=== PATIENT | male | born 1965 | race Caucasian/White ===

== ENCOUNTER 2021-08-21 08:35 | Day surgery (SDC) | payer OTHER ==
--- NOTE | 2021-08-08 15:35 | NUR ---
DOS: 08/21/21 STAIRS: 4 STEPS INTO THE HOME WALKER: HAS A FWW AND WILL BRING IT ON THE DAY OF SURGERY SHOWER: STEP OVER AND WILL NEED TO GET A CHAIR OR [facility]ENCH PROVIDED [employer] CLOSET HANDOUT TOILETS: SHORT AND WILL NEED TO GET A RISER APPOINTMENTS AND PHYSICAL THERAPY: HIS WILL BE HOME WITH HIM ND GET HIM TO WHERE HE NEEDS TO GO.
[~2021-08-21] VITALS: Ht 162.6 cm; Wt 64.5 kg
--- NOTE | ~2021-08-21 | OR ---
[facility] [address] [place], [place] [address] Draft DATE OF OPERATION: 08/21/2021 SURGEON: Candida Salas MD PREOPERATIVE DIAGNOSIS: Severe erosive degenerative joint disease, right knee. POSTOPERATIVE DIAGNOSIS: Severe erosive degenerative joint disease, right knee. PROCEDURE PERFORMED: Right total knee arthroplasty with Grabiel with increased difficulty. POST COMMANDER: XAVIER Rodriguez. Stefania was critical and present for all portions of procedure. ANESTHESIA: Spinal. BLOOD LOSS: 250 mL. TOURNIQUET TIME: Zero. IMPLANTS: Triathlon size 5 femur, 4 universal base plate with a 5 mm Augment medially, 50 mm tibial stem, 13 mm polyethylene, and 35 mm patella. BRIEF HISTORY: Adrienne is a 56-year-old gentleman with severe erosive osteoarthritis of his right knee. He had about 40 degrees of varus and marked erosion both of the femur, but mostly on the tibial side. Risks and benefits of difficult primary total knee were discussed with him. He elected to proceed. Once consent was obtained, he was taken to the operating room after adequate anesthesia. He was placed on operating table. All downside pressure points well padded. The leg was prepped and draped in a standard sterile fashion. The knee was approached through standard longitudinal incision. A mid vastus arthrotomy was performed. The MCL was elevated with a sleeve around the posteromedial corner. There were large osteophytes in the way both from the tibial and femoral side PATIENT NAME: ADRIENNE JAMA OPERATIVE REPORT DATE OF : 61 REPORT #: [id number] PHYSICIAN: CANDIDA SALAS MD PCP: SERA PADILLA MD REPORT IS CONFIDENTIAL AND NOT TO BE RELEASED WITHOUT AUTHORIZATION [facility] [address] [place], [place] [address] Draft and these were removed as we went. The patella was subluxed, however, it was quite large and with difficulty subluxing it. A small quadriceps snip was performed. The patella was then cut to allow mobilization laterally. Once this was accomplished, we were able to put the computer ray and the check point in medial femoral condyle. The proximal tibia also had a checkpoint placed and the tibial Grabiel ray was then placed percutaneously. We registered the fine anatomic points of the knee; however, we were unable to really assess ligamentous balance secondary to the extensive destruction medially. We then set the components in a little bit more varus to bring the gaps as close as we could. Once this was completed, then the robot was brought in and the straight cuts were made with care taken to protect the MCL and patellar tendon. Two ankle cuts were made as well. Once this was accomplished, all bony remnants were removed and the defect in the medial tibia was inspected. We then placed a universal base plate on there and pinned a cutting guide anteriorly. We then made the cut for 5 mm augment, which was sufficient to get down to good base bone. The trial was then positioned initially with an 11 mm polyethylene along with the femoral trial; however, this was quite loose, we went up to a 13, which showed good ligamentous balance both in extension and flexion and mid flexion. We then sized and drilled the patella for 35. The distal femoral drill holes were made and the keel punch was finished on the tibia along with drilling for the stem. Once this was accomplished, bone was pulse lavaged and packed with dry Ray-Anne Marie. The implants were prepared. I placed the 50 mm stem on the tibial base plate along with the 5 mm augment medially. The cement was mixed, when reached proper consistency, it was placed on the tibial and patellar components as well as a corresponding bone. The tibia was impacted into position until it was seated flush and all excess cement was removed. The 13 poly was snapped into position and the femur was impacted in place. The knee was extended and nicely loaded. The patella was clamped until the cement hardened. Any excess overflow was removed from both the tibia and the patella. The patellar tracking was noted to be good with no tilt. The knee was stable through 140 degrees of range of motion. He did get to full extension. The knee was pulse lavaged at intervals throughout the procedure. A total of 3 L normal saline was used. We did an Irrisept soak in the midportion. The On-Q pain pump was percutaneously placed into the adductor canal from the suprapatellar pouch. The arthrotomy was then closed using #2 Stratafix, subcutaneous tissue with #0 Stratafix, and skin with juarez. Wound was dressed with an Acticoat 7 dressing, ABD, and Yohan wrap. He tolerated the procedure well. All sponge, needle, and instrument counts were correct. Candida Salas MD PATIENT NAME: ADRIENNE JAMA OPERATIVE REPORT DATE OF : 61 REPORT #: [id number] PHYSICIAN: CANDIDA SALAS MD PCP: SERA PADILLA MD REPORT IS CONFIDENTIAL AND NOT TO BE RELEASED WITHOUT AUTHORIZATION [address], [place] [address] Draft [facility] /[id number] Copies: ~ PATIENT NAME: ADRIENNE JAMA BETHANY OPERATIVE REPORT DATE OF : 61 REPORT #: [id number] PHYSICIAN: CANDIDA SALAS MD PCP: SERA PADILLA MD REPORT IS CONFIDENTIAL AND NOT TO BE RELEASED WITHOUT AUTHORIZATION
[~2021-08-21 08:35] MED LIST: DICLOFENAC SODI50 MG PO; IBU800 MG PO; OMEPRAZOLE20 MG PO; TYLENOL EXTRA500 MG PO; ZYLOPRIM100 MG PO
[2021-08-21] MEDS ORDERED: MULTI-VITAMIN1 EACH PO (08:55)
[2021-08-21] MEDS ORDERED: XARELTO10 MG PO (13:41)
[2021-08-21] MEDS ORDERED: SENNA LAX8.6 MG PO (13:42)
[2021-08-21] MEDS ORDERED: ACETAMINOPHEN500 MG PO (13:42)
[2021-08-21] MEDS ORDERED: DICLOFENAC SODI75 MG PO (13:42)
[2021-08-21] MEDS ORDERED: GABAPENTIN600 MG PO (13:42)
[2021-08-21] MEDS ORDERED: OXYCODONE HCL5 MG PO (13:42)
--- NOTE | 2021-08-21 13:53 | NUR ---
08/21/21 1353 Liana Johnson 1341 PATIENT ARRIVES TO PACU AWAKE OFF/ON, BUT DROWSY. RESP EVEN AND UNLABORED, MASK AT 6 LITERS. DENIES PAIN OR NAUSEA. 1351 PATIENT AWAKE OFF/ON, LESS DROWSY. CONTINUES TO DENY PAIN OR NAUSEA. RESP EVEN AND UNLABORED, OXYGEN OFF, ROOM AIR SATS >93%.
--- NOTE | 2021-08-21 14:44 | NUR ---
1400: PT RETURNS TO UNIT VIA STRETCHER FROM PACU. AWAKE AND ALERT ON ARRIVAL. HOLDS APPROPRIATE CONVERSATION. VSS, RESP EVEN AND UNLABORED ON RA. DENIES PAIN AND NAUSEA. SPINAL LEVEL AT T-4. GOOD MOTION TO BLE. DRESSING C/D/I. CRYO CUFF, COMPRESSION SOCKS AND COMPRESSION BOOTS IN PLACE. ICE WATER AND CRACKERS PROVIDED. POC DISCUSSED AND PT AGREEABLE. NO NEEDS VOICED AT THIS TIME, CALL LIGHT WITHIN REACH
--- NOTE | 2021-08-21 15:24 | NUR ---
1500: PT AWAKE AND ORIENTED, WATCHING TV IN STRETCHER. VSS, RESP EVEN AND UNLABORED. ANALILIA PO INTAKE WELL. DENIES PAIN AND NAUSEA. SECOND DOSE OF TXA INFUSING ORDERED. DRESSING REMAINS C/D/I. CRYO CUFF, FOOTPUMPS AND COMPRESSION SOCKS IN PLACE. PHYSICAL THERAPY TO ROUND AT 1600. PT COMFORTABLE WITHOUT NEEDS AND REQUESTS. CALL LIGHT WITHIN REACH
--- NOTE | 2021-08-21 16:30 | NUR ---
1545: PT REPORTS URGE TO VOID. URINAL PROVIDED AT THE BEDSIDE. PT WITH FIRST SUCCESSFUL POSTOP VOID, 300ML DARK ORANGE URINE. NO FURTHER NEEDS VOICED AT THIS TIME. CALL LIGHT WITHIN REACH 1610: PHYSICAL THERAPIST AT THE BEDSIDE. IV CONVERTED TO SL. PAIN RX ADMINISTERED ORDERED, SEE PT EMAR. ASSISTED TO WC TO GO TO FLOOR FOR THERAPY SESSION.
--- NOTE | 2021-08-21 16:56 | NUR ---
1655: PT CLEARED FOR DC BY PHYSICAL THERAPY. TC PLACED TO MD AIRAM AND DC ORDER RECEIVED AT THIS TIME.
--- NOTE | 2021-08-21 17:30 | NUR ---
1700: PT DRESSED WITH 'S ASSISTANCE AND READY FOR DC. SECOND DOSE OF ANCEF ASMINISTERED ORDERED, SEE PT EMAR. IV FLUSHED WITH 10MLS OF NS. SL REMOVED WITH CATH TIP INTACT AND PRESSURE APPLIED TO SITE, WNL. VSS, RESP EVEN AND UNLABORED. DRESSING REMAINS C/D/I. PT REPORTS ANALILIA PAIN LEVEL, 4/10 AND DENIES NAUSEA. DC INSTRUCTIONS PROVIDED AND DISCUSSED ORDERED. PT VOICES UNDERSTANDING AND DENIES QUESTIONS AND CONCERNS AT THIS TIME 1710: PT WHEELED OFF UNIT BY THIS RN IN . TRANSFERS INTO VEHICLE INDEPENDENTLY AND APPROPRIATLEY. NO PHYSICAL S/S OF DISTRESS
== END 2021-08-21 17:15 | disposition home or self-care (01) ==
LOC: DS 08:35
PROVIDERS: ATTEND Specialist
PROC: 8E0YXBZ Computer Assisted Procedure of Lower Extremity (ICD-10-PCS; 2021-08-21)
PROC: 0SRC0J9 Replacement of Right Knee Joint with Synthetic Substitute, Cemented, Open Approach (ICD-10-PCS; principal; 2021-08-21 12:00)
DX: M17.31 Unilateral post-traumatic osteoarthritis, right knee (principal); G89.18 Other acute postprocedural pain; F17.210 Nicotine dependence, cigarettes, uncomplicated; I10 Essential (primary) hypertension; T14.90XS Injury, unspecified, sequela; M1A.09X0 Idiopathic chronic gout, multiple sites, without tophus (tophi); I49.3 Ventricular premature depolarization
CPT/HCPCS: 73560; J0690; J1100; J2001; J2250; J2704; J2795; J7121

== ENCOUNTER 2021-10-12 11:15 | Emergency (ER) | payer OTHER ==
[~2021-10-12] VITALS: Ht 162.6 cm; Wt 64.4 kg
[~2021-10-12 11:15] MED LIST changes: +ACETAMINOPHEN500 MG PO; +DICLOFENAC SODI75 MG PO; +GABAPENTIN600 MG PO; +MULTI-VITAMIN1 EACH PO; +OXYCODONE HCL5 MG PO; +SENNA LAX8.6 MG PO; +XARELTO10 MG PO
--- OUTSIDE RECORDS SUMMARY | 2021-10-12 11:18 | XMS ---
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 Brooklynn has no Care Guidelines for this patient. Kavya VISIT COUNT (12 MO.) 1 [facility] Clark TOTAL 1 NOTE: Visits indicate total known visits. ED/UCC VISIT TRACKING (12 MO.) 10/12/2021 11:16 [facility] Izquierdo [place] TYPE: Emergency COMPLAINT: - EXTREMITY PAIN INPATIENT VISIT TRACKING (12 MO.) No inpatient visits to display in this time frame [email or web address]
== END 2021-10-12 14:24 | disposition home or self-care (01) ==
LOC: ED 11:15
DX: G89.18 Other acute postprocedural pain (principal); M25.561 Pain in right knee; M10.9 Gout, unspecified; F17.200 Nicotine dependence, unspecified, uncomplicated; Z79.899 Other long term (current) drug therapy
CPT/HCPCS: 36415; 73560; 80053; 83605; 85025; 86140; 93971; 96374; 99284-25; J1885

== ENCOUNTER 2021-11-09 13:18 | Emergency (ER) | payer OTHER, MEDICARE ==
[~2021-11-09] VITALS: Ht 162.6 cm; Wt 68.0 kg
--- OUTSIDE RECORDS SUMMARY | 2021-11-09 13:20 | XMS ---
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 Brooklynn has no Care Guidelines for this patient. Kav[facility] (12 [address] [facility] NOTE: Visits indicate total known visits. ED/C VISIT TRACKING (12 MO.) 11[facility]09[facility]2021 13[facility] COMPLAINT: - NECK PAIN/INJURY 10/12/2021 11:[address] [facility] [place] TYPE: Emergency COMPLAINT: - EXTREMITY PAIN DIAGNOSES: - Other senior care (current) drug therapy - Pain in right knee - Nicotine dependence, unspecified, uncomplicated - Gout, unspecified - Other acute postprocedural pain INPATIENT VISIT TRACKING (12 MO.) No inpatient visits to display in this time frame [id number]
[2021-11-09] MEDS ORDERED: VARENICLINE TART1 MG PO (14:56)
[2021-11-09] MEDS ORDERED: HYDROCODON-ACE1 EA11 PO (14:56)
[2021-11-09] MEDS ORDERED: IBUPROFEN800 MG PO (14:57)
[2021-11-09] MEDS ORDERED: LISINOPRIL20 MG PO (15:52)
[2021-11-13] MEDS ORDERED: LEVETIRACETAM500 MG PO (08:20)
[2021-11-13] MEDS ORDERED: TYLENOL EXTRA500 MG PO (08:30)
[2021-11-13] MEDS ORDERED: ALLOPURINOL300 MG PO (08:53)
== END 2021-11-09 21:34 | disposition home or self-care (01) ==
LOC: ED 13:18
DX: S80.01XA Contusion of right knee, initial encounter (principal); M10.9 Gout, unspecified; F17.200 Nicotine dependence, unspecified, uncomplicated; Z79.899 Other long term (current) drug therapy; V43.52XA Car driver injured in collision with other type car in traffic accident, initial encounter
CPT/HCPCS: 36415; 70450; 71260; 72125; 73560; 74177; 80053; 82553; 83605; 85025; 96361; 99284-25; G0480; J7030; Q9967

== ENCOUNTER 2021-11-10 13:13 | Emergency (ER) | payer MEDICARE, OTHER ==
[~2021-11-10] VITALS: Ht 162.6 cm; Wt 68.0 kg
[~2021-11-10 13:13] MED LIST changes: +HYDROCODON-ACE1 EA11 PO; +IBUPROFEN800 MG PO; +LISINOPRIL20 MG PO; +VARENICLINE TART1 MG PO
--- OUTSIDE RECORDS SUMMARY | 2021-11-10 13:16 | XMS ---
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 CARE PROVIDERS There are no care providers on record at this time. Brooklynn has no Care Guidelines for this patient. Kavya V[facility] COUNT (12 MO.) [facility] NOTE: Visits indicate total known visits. 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
[2021-11-13] MEDS ORDERED: LEVETIRACETAM500 MG PO (08:20)
[2021-11-13] MEDS ORDERED: TYLENOL EXTRA500 MG PO (08:30)
[2021-11-13] MEDS ORDERED: ALLOPURINOL300 MG PO (08:53)
== END 2021-11-10 17:34 | disposition home or self-care (01) ==
LOC: ED 13:13
DX: R41.0 Disorientation, unspecified (principal); S81.011A Laceration without foreign body, right knee, initial encounter; M10.9 Gout, unspecified; F17.200 Nicotine dependence, unspecified, uncomplicated; Z79.899 Other long term (current) drug therapy; W18.30XA Fall on same level, unspecified, initial encounter
CPT/HCPCS: 36415; 80053; 82140; 84443; 85025; 96360; 99285-25; J7030

== ENCOUNTER 2023-03-17 20:27 | Emergency (ER) | payer MEDICARE, OTHER ==
[~2023-03-17] VITALS: Ht 162.6 cm; Wt 48.7 kg
[~2023-03-17 20:27] MED LIST changes: +ALLOPURINOL300 MG PO; +LEVETIRACETAM500 MG PO
[2023-03-17] MEDS ORDERED: DIVALPROEX SOD500 M1 PO (20:41)
[2023-03-17] MEDS ORDERED: POTASSIUM CHLO20 ME1 PO (20:43)
[2023-03-17] MEDS ORDERED: COLCRYS0.6 MG PO (20:43)
[2023-03-17 20:46] LABS: BASOPHILS 0.8 % (0-2); EOSINOPHILS 4.5 % (0-6); HEMATOCRIT 42.1 % (35.0-50.0); HEMOGLOBIN 14.2 g/dL (12.0-18.0); LYMPHOCYTES 42.3 % (24-44); MCH 35.3 (27-36); MCHC 33.8 g/dl (30-36); MCV 104.6 fl (81-99); MONOCYTES 7.6 % (0-12); NEUTROPHILS 44.8 % (39-80); PLATELET COUNT 175 K/uL (140-440); RBC 4.03 M/ul (4.3-5.7); RDW 14.4 (10.5-15.0)
[2023-03-17 20:59] LABS: ALBUMIN 3.6 g/dL (3.4-5.0); ALBUMIN/GLOBULIN RATIO 1.06 (1.1-2.4); ANION GAP 26.6 (7-21); BILIRUBIN, TOTAL 0.7 ng/dL (0.2-1.0); CREATININE, SERUM 1.2 mg/dL (0.70-1.30); POTASSIUM 2.6 mmol/L (3.5-5.1)
[2023-03-17 21:44] LABS: BILIRUBIN, URINE NEGATIVE (negative); BLOOD/HGB, URINE SMALL (Negative); KETONE, URINE TRACE (Negative); LEUK ESTERASE, URINE NEGATIVE (negative); NITRITE, URINE NEGATIVE (negative)
[2023-03-17 21:57] LABS: EPITHELIAL CELLS, URINE 0 /lpf (0-1+)
[2023-03-17 21:58] LABS: VALPROIC ACID 36 ug/mL (50-100)
[2023-03-17 21:58] LABS: BACTERIA, URINE NONE SEEN /hpf (negative); REFLEX CULTURE, URINE No (No)
[2023-03-17 23:39] LABS: PH, VENOUS 7.388 (7.31-7.41)
[2023-03-17 23:54] LABS: ANION GAP 14.1 (7-21); BUN/CREATININE RATIO 13.51 (6.0-28.6); CALCIUM 8.5 mg/dL (8.5-10.1); CREATININE, SERUM 0.74 mg/dL (0.70-1.30); POTASSIUM 3.1 mmol/L (3.5-5.1)
[2023-03-18] MEDS ORDERED: MAGNESIUM OXID400 M1 PO (00:22)
[2023-03-18 01:10] VITALS: BP 146/90
[2023-03-19 13:06] LABS: KEPPRA (LEVETIRACETAM) 3 ug/mL (10-40)
== END 2023-03-18 01:10 | disposition home or self-care (01) ==
LOC: ED 20:27
PROVIDERS: Family Medicine
DX: R56.9 Unspecified convulsions (principal); E87.6 Hypokalemia; E83.42 Hypomagnesemia; Z79.899 Other long term (current) drug therapy
CPT/HCPCS: 36415; 70450; 71045; 80048; 80053; 80164; 80177; 81001; 82803; 83735; 85025; A9270; J1953; J2060; J3475; J3480; J7121

== ENCOUNTER 2024-08-21 18:34 | Inpatient (IN) | payer MEDICARE, OTHER ==
[~2024-08-21] VITALS: Ht 162.6 cm; Wt 45.0 kg
[~2024-08-21 18:34] MED LIST changes: +COLCRYS0.6 MG PO; +DIVALPROEX SOD500 M1 PO; +MAGNESIUM OXID400 M1 PO; +POTASSIUM CHLO20 ME1 PO
[2024-08-21 18:54] LABS: BASOPHILS 0.4 % (0-2); EOSINOPHILS 0.4 % (0-6); HEMATOCRIT 37.9 % (35.0-50.0); HEMOGLOBIN 13.1 g/dL (12.0-18.0); LYMPHOCYTES 17.9 % (24-44); MCH 35.1 (27-36); MCHC 34.7 g/dl (30-36); MCV 101.2 fl (81-99); MONOCYTES 6.2 % (0-12); NEUTROPHILS 75.1 % (39-80); PLATELET COUNT 261 K/uL (140-440); RBC 3.74 M/ul (4.3-5.7); RDW 15.1 (10.5-15.0)
[2024-08-21] MEDS ORDERED: IBLOOD GLUCOSE TEST STRIP 1 EA TEST XX ONE (19:00)
[2024-08-21 19:13] LABS: PARTIAL THROMBOPLASTIN TIME 29.1 Sec (22.9-41.3)
[2024-08-21 19:14] LABS: INR 1.08 (0.80-1.30); PROTIME 13.4 Sec (11.2-14.2)
[2024-08-21 19:17] LABS: ALBUMIN 1.9 g/dL (3.4-5.0); ALBUMIN/GLOBULIN RATIO 0.43 (1.1-2.4); ANION GAP 7.6 (7-21); BILIRUBIN, TOTAL 0.4 mg/dL (0.2-1.0); BUN/CREATININE RATIO 14.77 (6.0-28.6); CALCIUM 8.3 mg/dL (8.5-10.1); CREATININE, SERUM 0.88 mg/dL (0.70-1.30); POTASSIUM 4.6 mmol/L (3.5-5.1); PROTEIN, TOTAL 6.3 g/dL (6.4-8.2)
[2024-08-21 19:28] LABS: VALPROIC ACID 89 ug/mL (50-100)
[2024-08-21 19:32] LABS: ACETAMINOPHEN 0 ug/mL (10-30); SALICYLATE 2.8 mg/dL (2.8-20.0)
[2024-08-21] MEDS ORDERED: LACTATED RINGER'S 1,000 ML IV ONE (21:15)
[2024-08-21] MEDS ORDERED: ASPIRIN 81 MG CHEW PO ONE (21:30)
[2024-08-21] MEDS ORDERED: LACTATED RINGER'S 1,000 ML IV SCH (21:45)
[2024-08-21 22:15] VITALS: BP 119/71
--- NOTE | 2024-08-21 22:46 | NUR ---
2204 - admitted to room 121 via stretcher from er. acompaning pt. Pt mute at times. stiff R arm noted. tele#9 applied. Flat affect. On room air. RT in room, CPOX applied. SL LAC. Uses attends. answered most answered most questions as pt answered only ocassionally. All cares explained
--- NOTE | 2024-08-21 23:06 | NUR ---
PATIENT ABLE TO VERBALLY ANSWER QUESTIONS, ACCURATELY ANSWERED HIS BIRTHDAY AND NAME, UNABLE TO STATE HOW OLD HE IS, DISORIENTED TO PLACE, TIME AND DATE. PATIENT ABLE TO FOLLOW COMMANDS, MILD RIGHT SIDED DEFICITS. WEAKNESS IN ALL 4 EXTREMITIES, WORSENED ON RIGHT SIDE. PATIENT ABLE TO APPROPRIATELY USE CALL LIGHT AND FOLLOW INSTRUCTIONS. AT BEDSIDE, AND PATIENT IS ABLE TO STATE HIS WIFES NAME AND IDENTIFY HER WELL.
--- NOTE | 2024-08-21 23:47 | NUR ---
RESPONDED TO BEEPING IV, REPLACED LR BAG. PT ASLEEP WITH OBSERVABLE RISE AND FALL OF CHEST. PROVIDED SODA FOR PT GUEST, NO OTHER NEEDS.
[2024-08-22] VITALS (9 sets, daily range): BP systolic 114–147; BP diastolic 56–79
--- NOTE | 2024-08-22 00:23 | NUR ---
ROUNDED ON PATIENT, IV PUMP ALARMING DUE TO OCCLUSION. PATIENT ARM WAS BENT. ARM ADJUSTED AND IV FLUIDS RESTARTED. PATIENT RESTING, RESPIRATIONS EVEN AND UNLABORED. AT BEDSIDE.
--- NOTE | 2024-08-22 01:18 | NUR ---
VS OBTAINED AND RECORDED, IV FLUIDS CONTINUING TO INFUSE PER ORDER. PATIENT RESTING WITH EYES CLOSED, RESPIRATIONS ARE EVEN AND UNLABORED. IS ASLEEP AT THE BEDSIDE. NO NEEDS IDENTIFIED, SEIZURE PADS IN PLACE. CALL LIGHT IN REACH
--- NOTE | 2024-08-22 03:51 | NUR ---
PATIENT RESTING WITH EYES CLOSED, RESPIRATIONS EVEN AND UNLABORED. ASLEEP AT THE BEDSIDE. CALL LIGHT IN REACH, SEIZURE PADS IN PLACE.
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
[2024-08-22 05:38] LABS: BASOPHILS 0.6 % (0-2); EOSINOPHILS 0.9 % (0-6); HEMATOCRIT 33.1 % (35.0-50.0); HEMOGLOBIN 11.5 g/dL (12.0-18.0); LYMPHOCYTES 28.2 % (24-44); MCH 35.3 (27-36); MCHC 34.9 g/dl (30-36); MCV 101.1 fl (81-99); MONOCYTES 7.9 % (0-12); NEUTROPHILS 62.4 % (39-80); PLATELET COUNT 214 K/uL (140-440); RBC 3.27 M/ul (4.3-5.7); RDW 15.3 (10.5-15.0)
[2024-08-22 05:52] LABS: ALBUMIN 1.7 g/dL (3.4-5.0); ALBUMIN/GLOBULIN RATIO 0.43 (1.1-2.4); ANION GAP 5.2 (7-21); BILIRUBIN, TOTAL 0.3 mg/dL (0.2-1.0); CALCIUM 8.2 mg/dL (8.5-10.1); CREATININE, SERUM 0.75 mg/dL (0.70-1.30); MAGNESIUM 1.6 mg/dL (1.8-2.4); POTASSIUM 4.2 mmol/L (3.5-5.1); PROTEIN, TOTAL 5.7 g/dL (6.4-8.2)
[2024-08-22 05:58] LABS: CHOLESTEROL/HDL RATIO 4.5; PHOSPHORUS, INORGANIC 3.1 mg/dL (2.5-4.9)
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
--- NOTE | 2024-08-22 07:01 | NUR ---
NEW IV FLUID BAG HUNG, PATIENT RESTING WITH EYES CLOSED, RESP EVEN AND UNLABORED. FAMILY MEMBER ASLEEP AT THE BEDSIDE. CALL LIGHT IN REACH, SEIZURE PADS IN PLACE. NO NEEDS IDENITIFIED, CALL LIGHT IN REACH
--- NOTE | 2024-08-22 07:24 | NUR ---
VERBAL REPORT RECEIVED FROM JONATHON ROBISON. PT RESTS IN BED WITH EYES CLOSED, RESP EVEN AND UNLABORED. CPOX IN PLACE, SPO2 95%.
[2024-08-22] MEDS ORDERED: MAGNESIUM SULFATE 2 GM/50 ML BAG IV SCH (08:00)
[2024-08-22 08:38] LABS: BILIRUBIN, URINE NEGATIVE (negative); BLOOD/HGB, URINE MODERATE (Negative); KETONE, URINE NEGATIVE (Negative); LEUK ESTERASE, URINE MODERATE (negative); NITRITE, URINE POSITIVE (negative)
--- NOTE | 2024-08-22 08:47 | NUR ---
[facility]
[2024-08-22 08:49] LABS: WHITE BLOOD CELLS, URINE >50 /HPF (0-5)
[2024-08-22 08:50] LABS: BACTERIA, URINE 2+ /hpf (negative); CASTS, URINE NONE SEEN \\lpf; COLLECTION TYPE, URINE CLEAN CATCH; CRYSTALS, URINE NONE SEEN (0-1+); EPITHELIAL CELLS, URINE SQUAMOUS 1+ /lpf (0-1+); REFLEX CULTURE, URINE Yes (No)
[2024-08-22 09:00] LABS: AMPHETAMINES, URINE NEGATIVE (NEGATIVE); BARBITURATES, URINE NEGATIVE (NEGATIVE); BENZODIAZEPINE, URINE NEGATIVE (NEGATIVE); BUPRENORPHINE, URINE NEGATIVE (NEGATIVE); CANNABINOID, URINE POSITIVE (NEGATIVE); COCAINE, URINE NEGATIVE (NEGATIVE); ECSTASY, URINE NEGATIVE (NEGATIVE); FENTANYL, URINE NEGATIVE (NEGATIVE); METHADONE, URINE NEGATIVE (NEGATIVE); OPIATES, URINE NEGATIVE (NEGATIVE); OXYCODONE, URINE NEGATIVE (NEGATIVE); PHENCYCLIDINE, URINE NEGATIVE (NEGATIVE)
--- NOTE | 2024-08-22 09:21 | NUR ---
CCU CALLED, PT HR DROPPED TO 30 X2. THIS RN IN ROOM. PT IS ASLEEPING, AROUSABLE, DENIES ANY COMPLAINTS. HILBORN AWARE, NO NEW ORDERS.
--- NOTE | 2024-08-22 09:27 | EKG ---
[facility] [address] [facility] [facility] [place] [address] Signed Normal sinus rhythm Normal ECG When compared with ECG of 15-NOV-2021 12:55, Vent. rate has decreased BY [address] no longer depressed in Inferior leads ST no longer depressed in Lateral leads T wave inversion no longer evident in Inferior leads T wave inversion no longer evident in Anterolateral leads Confirmed by Ruiz Mitchell MD () on 08/22/2024 9:27:15 AM Electronically Signed By: RUIZ MITCHELL MD 08/22/24 0927 PATIENT NAME: ADRIENNE JAMA Electrocardiogram DATE OF : 61 PHYSICIAN: RUIZ MITCHELL MD REPORT #: [id number] REPORT IS CONFIDENTIAL AND NOT TO BE RELEASED WITHOUT AUTHORIZATION
[2024-08-22] MEDS ORDERED: ASPIRIN 81 MG CHEW PO SCH (10:08)
[2024-08-22] MEDS ORDERED: ACETAMINOPHEN 325 MG TAB PO PRN (10:15)
[2024-08-22] MEDS ORDERED: CEFTRIAXONE SODIUM 2 GM in SODIUM CHLORIDE 0.9% 100 ML IV SCH (10:15)
[2024-08-22] MEDS ORDERED: ondansetron HCL 4 MG/2 ML VIAL IV PRN (10:15)
[2024-08-22] MEDS ORDERED: SODIUM CHLORIDE 0.9% 1,000 ML IV SCH (10:15)
[2024-08-22] MEDS ORDERED: ATORVASTATIN CA20 MG PO (10:27)
[2024-08-22] MEDS ORDERED: PANTOPRAZOLE SODIUM 40 MG TABEC PO SCH (10:36)
--- NOTE | 2024-08-22 10:38 | NUR ---
UPON ASSESSMENT NOTED PUREWICK LEAKING. OLD PUREWICK REMOVED. PERICARE PROVIDED. NEW PUREWICK PUT IN PLACE. PT ASSISTED TO TURN IN BED FOR CARES, TOLERATES THIS WELL. PHYSICAL THERAPY IN ROOM NOW WORKING WITH PT.
[2024-08-22] MEDS ORDERED: ATORVASTATIN 40 MG TAB PO SCH (10:45)
[2024-08-22] MEDS ORDERED: PHARMACY RENAL DOSE ADJUSTMENT 1 DOSE MISC PO SCH (12:00)
--- NOTE | 2024-08-22 14:07 | NUR ---
PATIENT IS IN BED RESTING, FAMILY IN ROOM WITH HIM, RENT AND MISCELLANEOUS REMITTANCE CLERK CHARTED VITALS AND I&O'S CALL LIGHT WITH IN REACH AND NOTHING ELSE NEEDED AT THIS TIME.
--- NOTE | 2024-08-22 19:03 | NUR ---
PATIENT IS IN BED AT THIS TIME, BUSINESS SYSTEMS ARCHITECT CHARTED VITALS AND I&O'S, PUT PATIENT ON BED NOVA BUT HE DID NOT HAVE A BM. CALL LIGHT WITH IN REACH AND NOTHING ELSE NEEDED AT THIS TIME.
--- NOTE | 2024-08-22 19:17 | NUR ---
REPORT RECEIVED FROM MAURO RN. PATIENT SITTING UPRIGHT IN BED, SEIZURE PADS IN PLACE. PATIENT WATCHING TV, STATES HE IS FEELING WELL. DENIES ANY NEEDS, CALL LIGHT IN REACH.
--- NOTE | 2024-08-22 19:38 | NUR ---
FAMILY MEMBER CAME TO NURSES STATION AND STATED THAT THE PATIENT HAD A "SEIZURE" AND REPORTED THAT SHE WAS TALKING TO THE PATIENT AND THAT HE "DIDNT WANT TO TALK BACK TO HER." UPON ASSESSMENT, PATIENT IMMEDIATELY LOOKED AT RN ENTERING ROOM AND RESPONDING TO QUESTIONS. PATIENT IS ORIENTED TO PLACE AND SELF, NOT ORIENTED TO TIME WHICH IS UNCHANGED. SEIZURE PADS ARE IN PLACE, PATIENT APPROPRIATELY ANSWERS THAT HE HAS NO FURTHER NEEDS, CALL LIGHT IN REACH.
[2024-08-22] MEDS ORDERED: DIVALPROEX SODIUM 500 MG TABLET.DR PO SCH (21:00)
--- NOTE | 2024-08-22 22:00 | NUR ---
CALL LIGHT ANSWERED, PATIENT WATCHING TV. RESPIRATIONS EVEN AND UNLABORED. NO NEEDS IDENTIFIED, FAMILY MEMBER REQUESTED BLANKET. PROVIDED PER REQUEST. NO FURTHER NEEDS, CALL LIGHT IN REACH.
--- NOTE | 2024-08-22 22:45 | NUR ---
PATIENT RESTING WITH EYES CLOSED, RESPIRATIONS ARE EVEN AND UNLABORED. NEW IVF BAG HUNG PER ORDER. NO FURTHER NEEDS IDENTIFIED, CALL LIGHT IN REACH.
[2024-08-23] VITALS (9 sets, daily range): BP systolic 102–129; BP diastolic 63–84
--- NOTE | 2024-08-23 00:12 | NUR ---
NEUROLOGICAL EXAM COMPLETED. PATIENT ANSWERED QUESTIONS APPROPRIATELY TO SELF AND PLACE. NOT ORIENTED TO TIME, WHICH IS UNCHANGED FROM PREVIOUS. REMAINS AT BEDSIDE, PATIENT CONTINUING TO REST FOLLOWING EXAM. IVF CONTINUING TO INFUSE PER ORDER. NO FURTHER NEEDS, SEIZURE PADS IN PLACE. CALL LIGHT IN REACH
--- NOTE | 2024-08-23 02:34 | NUR ---
PATIENT RESTING WITH EYES CLOSED, RESPIRATIONS EVEN AND UNLABORED. SEIZURE PADS IN PLACE. NO NEEDS IDENTIFIED, CALL LIGHT IN REACH. IVF CONTINUING TO INFUSE PER ORDER. REMAINS AT BEDSIDE, ASLEEP ON THE COUCH.
--- NOTE | 2024-08-23 04:04 | NUR ---
IV PUMP ALARMING, PATIENT SIDE OCCLUSION. ON ASSESSMENT, PATIENT HAD HIS ARM BENT. PATIENT WAS AWAKE, NEURO ASSESSMENT COMPLETE. NO CHANGES. PATIENT DENIES ANY NEEDS, IVF CONTINUING TO INFUSE PER ORDER. CALL LIGHT IN REACH
[2024-08-23 05:14] LABS: BASOPHILS 0.6 % (0-2); EOSINOPHILS 0.8 % (0-6); HEMATOCRIT 30.4 % (35.0-50.0); HEMOGLOBIN 10.8 g/dL (12.0-18.0); LYMPHOCYTES 30.5 % (24-44); MCH 35.7 (27-36); MCHC 35.5 g/dl (30-36); MCV 100.5 fl (81-99); NEUTROPHILS 60.1 % (39-80); PLATELET COUNT 191 K/uL (140-440); RBC 3.02 M/ul (4.3-5.7); RDW 15.1 (10.5-15.0)
[2024-08-23 05:30] LABS: ALBUMIN 1.5 g/dL (3.4-5.0); ALBUMIN/GLOBULIN RATIO 0.42 (1.1-2.4); ANION GAP 5.9 (7-21); BILIRUBIN, TOTAL 0.2 mg/dL (0.2-1.0); BUN/CREATININE RATIO 12.85 (6.0-28.6); CALCIUM 7.2 mg/dL (8.5-10.1); CREATININE, SERUM 0.7 mg/dL (0.70-1.30); MAGNESIUM 2.1 mg/dL (1.8-2.4); PHOSPHORUS, INORGANIC 2.5 mg/dL (2.5-4.9); POTASSIUM 3.9 mmol/L (3.5-5.1); PROTEIN, TOTAL 5.1 g/dL (6.4-8.2)
--- NOTE | 2024-08-23 06:01 | NUR ---
VS OBTAINED AND RECORDED. INTAKE AND OUTPUT DOCUMENTED. PATIENT REPOSITIONED. PURWICK CHANGED, PERICARE PROVIDED. IVF CONTINUING TO INFUSE PER ORDER. NO FURTHER NEEDS IDENITIFIED, CALL LIGHT IN REACH
--- NOTE | 2024-08-23 06:32 | NUR ---
NEW IV BAG HUNG PER ORDER. PATIENT RESTING WITH EYES CLOSED, RESPIRATIONS ARE EVEN AND UNLABORED. SEIZURE PADS IN PLACE. NO FURTHER NEEDS AT THIS TIME, CALL LIGHT IN REACH
--- NOTE | 2024-08-23 07:34 | NUR ---
PT RESTING EYES CLOSED SNORING SOFTLY AT TIME OF SHIFT REPORT. FAMILY/FRIEND SLEEPING ON THE COUCH. BOTH LEFT UNDISTURBED. CALL LIGHT IN REACH NEEDED ITEMS AT BEDSIDE.
--- NOTE | 2024-08-23 10:33 | NUR ---
PURWIK CHANGED AND HOOD CARE COMPLETED AFTER A SMALL BM. PT REPOSITIONED. BOTTOM INTACT NO REDNESS OR OPEN AREAS
--- NOTE | 2024-08-23 10:49 | NUR ---
AND FAMILY ARE PRESENT DISCUSSED PT'S BASELINE AND DECLINE. CARE COORDINATED WITH P/T SHE IS IN TO WORK WITH HIM NOW FAMILY PRESENT
--- NOTE | 2024-08-23 11:36 | NUR ---
AGREES P/T WENT WELL. PT RESTING IN BED NOW HE IS QUIET ALERT DENIES NEEDS
--- NOTE | 2024-08-23 12:29 | NUR ---
NOON MEAL SERVED PT APPEARS TO BE SLEEPY. SPOKE TO HIM SEVERAL MINUTES POSITIONED UP IN BED WITH CLOTHING COVER PUT BITE TO HIS MOUTH PT REFUSES. ASKED IF HE WANTED TO EAT PT GRUNTS IN NO. RETURNS A SHORT TIME LATER PT IS EATING WITH HER ASSIST AND ENCOURAGEMENT
--- NOTE | 2024-08-23 13:39 | NUR ---
PT RESTING IN BED REPOSITIONED OFF HIS BOTTOM
--- NOTE | 2024-08-23 14:47 | NUR ---
PATIENT IN BED RESTING WITH EYES CLOSED. IN ROOM. VITALS AND I&O'S DONE AND CHARTED. CALL LIGHT IN REACH. NO FURTHER NEEDS AT THIS TIME.
--- NOTE | 2024-08-23 15:36 | NUR ---
PT RESTING IN BED IS PRESENT IN THE ROOM. PT REPOSITIONED
--- NOTE | 2024-08-23 16:08 | NUR ---
medications reconciled by pharmacy
--- NOTE | 2024-08-23 18:08 | NUR ---
THIS TINNER AUTOMATIC IN TO DO VITALS AND I&O'S. PATIENT HAD INCONT. BM. HOOD CARE AND SKIN CARE DONE, 2PA. NEW ATTENDS AND MALE PURE WICK PLACED. PATIENT REPOSITIONED WITH PILLOW UNDER LEFT SIDE. IN ROOM.CALL LIGHT IN REACH. NO FURTHER NEEDS AT THIS TIME.
--- NOTE | 2024-08-23 19:31 | NUR ---
PATIENT RESTING IN BED, WATCHING TV. IVF CONTINUING TO INFUSE PER ORDER. NO NEEDS IDENTIFIED, CALL LIGHT IN REACH. FAMILY AT BEDSIDE.
--- NOTE | 2024-08-23 20:32 | NUR ---
Awake, reaches and grabs water jug w/o problems. Flat affect. follows instructions. Cooperative with vitals. Pure wick in place. IVF infusing. On room air, at bedside
--- NOTE | 2024-08-23 21:15 | NUR ---
ASSESSMENT COMPLETE, SCHEDULED MEDS GIVEN. PT RESPOSITONED. NO NEEDS IDENTIFIED, CALL LIGHT IN REACH.
--- NOTE | 2024-08-23 22:57 | NUR ---
PATIENT WATCHING TV, RESPIRATIONS ARE EVEN AND UNLABORED. FOLLOWING DIRECTIONS TO KEEP ARM STRAIGHT. IVF CONTINUING TO INFUSE PER ORDER. CALL LIGHT IN REACH.
[2024-08-24] VITALS (9 sets, daily range): BP systolic 109–150; BP diastolic 66–95
--- NOTE | 2024-08-24 01:17 | NUR ---
IV PUMP ALARMING, PATIENT ARM BENT. PATIENT RESTING, RESPIRATIONS EVEN AND UNLABORED. CALL LIGHT IN REACH.
--- NOTE | 2024-08-24 02:02 | NUR ---
PATIENT ORTIENTED TO SELF AND ABLE TO STATE THAT HE IS IN THE HOSPITAL BUT REPORTS THAT HE IS IN [place]. VS OBTAINED AND RECORDED BY JONATHON HARDY. NO FURTHER NEEDS IDENTIFIED, CALL LIGHT IN REACH.
--- NOTE | 2024-08-24 04:25 | NUR ---
IV PUMP ALARMING, PATIENT HAD BENT ARM AGAIN. EDUCATION PROVIDED TO PATIENT AND PATIENT REMINDED THAT HE NEEDS TO KEEP HIS ARM STRAIGHT, HE VERBALIZED UNDERSTANDING. NO FURTHER NEEDS. CALL LIGHT IN REACH. CPOX AT BEDSIDE, RESPIRATIONS EVEN AND UNLABORED.
[2024-08-24 05:58] LABS: BASOPHILS 0.4 % (0-2); EOSINOPHILS 0.5 % (0-6); HEMATOCRIT 32.6 % (35.0-50.0); HEMOGLOBIN 11.2 g/dL (12.0-18.0); LYMPHOCYTES 29.6 % (24-44); MCHC 34.3 g/dl (30-36); MONOCYTES 8.7 % (0-12); NEUTROPHILS 60.8 % (39-80); PLATELET COUNT 172 K/uL (140-440); RBC 3.19 M/ul (4.3-5.7); RDW 14.9 (10.5-15.0)
[2024-08-24 06:17] LABS: ALBUMIN 1.7 g/dL (3.4-5.0); ALBUMIN/GLOBULIN RATIO 0.46 (1.1-2.4); BILIRUBIN, TOTAL 0.3 mg/dL (0.2-1.0); BUN/CREATININE RATIO 12.16 (6.0-28.6); CALCIUM 7.7 mg/dL (8.5-10.1); CREATININE, SERUM 0.74 mg/dL (0.70-1.30); PROTEIN, TOTAL 5.4 g/dL (6.4-8.2)
--- NOTE | 2024-08-24 06:56 | NUR ---
FULL BED CHANGE, PURWICK CHANGE, PATIENT HAD BOWEL MOVEMENT WELL. IVF CONTINUING TO INFUSE PER ORDER. CALL LIGHT IN REACH. PATIENT REPOSITIONED.
--- NOTE | 2024-08-24 07:22 | NUR ---
REPORT FROM EVENING NURSE ENRIQUETA.
--- NOTE | 2024-08-24 08:08 | NUR ---
MORNING ASSESSMENT IS COMPLETE. PATIENT SITTING UP IN BED, REPOSITIONED WITH PILLOW UNDER KNEES. PATIENT DENIES PAIN. NIH IS 12 AND STABLE TO PATIENT'S BASELINE. HEARING AIDS ARE IN AND PATIENT IS A/O. PATIENT IS BEING ASSISTED WITH BREAKFAST. NO OTHER NEEDS AT THIS TIME.
--- NOTE | 2024-08-24 08:22 | NUR ---
MORNING MEDICATIONS GIVEN.
--- NOTE | 2024-08-24 08:48 | NUR ---
JONATHON COLINDRES IN THE ROOM DOING ASSESSMENT. BREAKFAST WAS BROUGHT IN AND PATIENT WAS ASSISTED WITH EATING. TRAY WAS REMOVED WHEN DONE. NO OTHER CARES WERE REQUESTED.
--- NOTE | 2024-08-24 09:21 | NUR ---
PT RESTING IN BED QUIETLY. RR EVEN AND UNLABORED, AT BEDSIDE. CALL LIGHT WITHIN REACH
--- NOTE | 2024-08-24 10:35 | NUR ---
PT RESTING IN BED WITH EYES CLOSED. CHEST RISE AND FALL VISUALIZED; RR EVEN AND UNLABORED. CALL LIGHT WITHIN REACH.
--- NOTE | 2024-08-24 10:46 | NUR ---
IN TO SEE PATIENT. APPEARS TO BE SLEEPING. WILL RETURN TO SPEAK WITH HIM
--- NOTE | 2024-08-24 10:50 | NUR ---
IN TO REPOSIITION PT WITH JONATHON COLINDRES. PT REPOSITIONED WITH PILLOW UNDER R HIP. SUCTION CANISTER EMPTIED. CALL LIGHT WITHIN REACH, NO NEEDS AT THIS TIME.
--- NOTE | 2024-08-24 11:09 | NUR ---
UR CLINICAL REVIEW: 2 MN FOR [facility] HEAD MEETS INPT FOR CVA VS SEIZURE MEDICARE INPT 08/22/24 @ 1007 ORDER MATCHES REG NO AUTH REQUIRED PER MEDICARE GUIDELINES DISCHARGE PENDING ONGOING EVALUATION
--- NOTE | 2024-08-24 11:11 | NUR ---
IN ROOM. PATIENT RESTING. ANSWERS ALL QUESTIONS. PATIENT CURRENTLY LIVES IN APARTMENT WITH SON AND . THEY ASSIST WITH HIS NEEDS. THERE ARE STEPS TO GET INSIDE WHICH MAKE LEAVING APARTMENT DIFFICULT. PATIENT HAS NO DME. AND SON ASSIST WITH TRANSPORTATION. PATIENT AND STRUGGLE FINANCIALLY. STATES THEY HAVE REACHED OUT TO [facility] FOR ASSISTANCE. ANSWERS HER PHONE DURING ASSESSMENT. WILL RETURN TO DISCUSS POTENTIAL DC PLAN AFTER PT/OT NOTES REVIEWED.
--- NOTE | 2024-08-24 11:25 | NUR ---
NEW BAG OF NS IV FLUID HANGING. PATIENT IS SLEEPING QUIETLY. IS TALKING WITH DAUGHTER ON PHONE TO MAKE SAFE DISCHARGE PLANS.
--- NOTE | 2024-08-24 11:56 | NUR ---
PT NOT AVAILABLE FOR VISIT. BRIEF INTERACTION WITH SPOUSE IN HALLWAY. METAPHYSICIAN PROVIDED SUPPORTIVE PRESENCE, FACILITATED INTERACTION WITH THERAPY ANIMAL. SPOUSE EXPRESSED GRATITUDE.
--- NOTE | 2024-08-24 12:47 | NUR ---
ASSISTED JONATHON COLINDRES AND KAMLA IN ROOM WITH PATIENT CARE. PT'S BRIEF CHANGED, SKIN ON BOTTOM INSPECTED. NO SIGNS OF CURRENT SKIN BREAKDOWN, BUT PT DOES APPEAR TO HAVE SOME SCARR TISSUE FROM PRIOR SKIN BREAKDOWN. PT REPOSITIONED IN BED. CALL LIGHT WITHIN REACH, NO FURTHER NEEDS AT THIS TIME.
--- NOTE | 2024-08-24 13:56 | NUR ---
PATIENT WAS GIVEN A BED BATH AT 1100. THEY ARE NOW CURRENTLY RESTING IN BED WITH IN ROOM.
--- NOTE | 2024-08-24 14:45 | NUR ---
PT AND OT IN TO WORK WITH PT. LISA DELGADO UTILIZED TO TRANSFER PT TO CHAIR; PT TOLERATED WELL. AT BEDSIDE. CALL LIGHT WITHIN REACH, NO FURTHER NEEDS AT THIS TIME.
--- NOTE | 2024-08-24 14:55 | NUR ---
NIH ASSESSMENT COMPLETED WITH JONATHON COLINDRES
--- NOTE | 2024-08-24 15:01 | NUR ---
UP IN RECLINER, IN ROOM. DISCUSSED PT RECOMMENDATION FOR SNF. STATES THAT IS THE BEST OPTION SHE CAN NOT PROVIDE ALL CARE NEEDED AND APARTMENT IS TOO SMALL FOR A LIFT TO BE USED. PATIENT CHOICES FOR FACILITIES PRESENTED AND THEY PREFER [facility] IN [place]. REFERRAL FAXED TO [facility].
--- NOTE | 2024-08-24 15:33 | NUR ---
CALL FROM [facility], THEY CAN ACCEPT PATIENT WHEN MEDICALLY READY. HOSPITALIST NOTIFIED. REQUESTS HE GO BY WHEELCHAIR VAN WHEN HE IS DISCHARGED.
--- NOTE | 2024-08-24 17:10 | NUR ---
PT CAROLYN LIFTED BACK TO BED BY JONATHON COLINDRES AND KAMLA. PT POSITIONED IN BED WITH PILLOWS AND BLANKETS. FAMILY MEMBERS IN ROOM AT BEDSIDE VISITING WITH PT AND . CALL LIGHT WITHIN REACH, NO NEEDS AT THIS TIME.
--- NOTE | 2024-08-24 18:38 | NUR ---
PT RESTING IN BED WITH EYES CLOSED. VISUALIZED CHEST RISE AND FALL; RESPIRATIONS EVEN AND UNLABORED. FAMILY HAS JUST LEFT FOR THE EVENING. CALL LIGHT WITHIN REACH.
--- NOTE | 2024-08-24 19:36 | NUR ---
REPORT RECEIVED FROM DAY SHIFT RN. PT LYING IN BED RESTING WITH EYES CLOSED. RESPIRATIONS EVEN. CALL LIGHT IN REACH. WHITE BOARD UPDATED.
--- NOTE | 2024-08-24 22:01 | NUR ---
EVENING ASSESSMENT COMPLETE. SCHEDULED MEDS ADMIN PER EMAR. NO SWALLOWING ISSUES NOTED. PT DENIES PAIN OR NAUSEA. PT ALERT AND ORIENTED X 2. GENERALIZED WEAKNESS NOTED. PUREWICK PATENT WITH QS CONCENTRATED URINE. 2PA TO REPOSITION IN BED. AT BEDSIDE. WARM BLANKETS AND DRINKS PROVIDED PER REQUEST. PT DENIES FURTHER NEEDS. CALL LIGHT IN REACH. BED ALARM FOR SAFETY.
--- NOTE | 2024-08-25 00:15 | NUR ---
PT RESTING IN BED WITH EYES CLOSED. RESPIRATIONS EVEN. CALL LIGHT IN REACH.
[2024-08-25 01:14] VITALS: BP 117/61
--- NOTE | 2024-08-25 01:37 | NUR ---
PT AWAKE IN BED. VS OBTAINED. PT DENIES PAIN. ASSISTED TO REPOSITION WITH PILLOWS IN BED. NEURO CHECK UNCHANGED. PT DENIES NEEDS. RESTING ON COUCH. CALL LIGHT IN REACH.
[2024-08-25 01:40] VITALS: BP 117/61
--- NOTE | 2024-08-25 03:59 | NUR ---
PT RESTING IN BED WITH EYES CLOSED. RESPIRATIONS EVEN. CALL LIGHT IN REACH.
[2024-08-25 05:25] LABS: BASOPHILS 0.5 % (0-2); EOSINOPHILS 0.5 % (0-6); HEMATOCRIT 27.6 % (35.0-50.0); HEMOGLOBIN 9.8 g/dL (12.0-18.0); MCH 35.7 (27-36); MCHC 35.6 g/dl (30-36); MCV 100.2 fl (81-99); MONOCYTES 9.3 % (0-12); NEUTROPHILS 59.7 % (39-80); PLATELET COUNT 171 K/uL (140-440); RBC 2.76 M/ul (4.3-5.7); RDW 15.2 (10.5-15.0)
[2024-08-25 05:39] LABS: ALBUMIN 1.5 g/dL (3.4-5.0); ALBUMIN/GLOBULIN RATIO 0.44 (1.1-2.4); BILIRUBIN, TOTAL 0.2 mg/dL (0.2-1.0); BUN/CREATININE RATIO 15.15 (6.0-28.6); CALCIUM 7.5 mg/dL (8.5-10.1); CREATININE, SERUM 0.66 mg/dL (0.70-1.30); PROTEIN, TOTAL 4.9 g/dL (6.4-8.2)
[2024-08-25 06:02] VITALS: BP 113/65
--- NOTE | 2024-08-25 06:18 | NUR ---
VS AND I&O OBTAINED. NEW PUREWICK PLACED AFTER HOOD CARE. PT ABLE TO ASSIST WITH TURNING IN BED. NO NEEDS AT THIS TIME. NEURO ASSESSMENT UNCHANGED. RESTING ON COUCH. BED ALARM FOR SAFETY. CALL LIGHT IN REACH.
--- NOTE | 2024-08-25 07:24 | NUR ---
REPORT RECEIVED FROM JONATHON MUNOZ. PT ASLEEP IN BED, ON COUCH, ON COUCH ALSO ASLEEP. CPOX WNL.
--- NOTE | 2024-08-25 09:01 | NUR ---
WHEELCHAIR VAN SCHEDULED FOR 103. AND PATIENT UPDATED. ORDERS FAXED TO [facility].
[2024-08-25 09:45] VITALS: BP 111/66
== END 2024-08-25 10:35 | DRG 690 ==
LOC: ED 18:34 → MS 21:33
PROVIDERS: Emergency Medicine; Internal Medicine; ADMIT Family Medicine; ATTEND Family Medicine
DX: N39.0 Urinary tract infection, site not specified (principal); I69.851 Hemiplegia and hemiparesis following other cerebrovascular disease affecting right dominant side; G40.909 Epilepsy, unspecified, not intractable, without status epilepticus; M25.511 Pain in right shoulder; F10.21 Alcohol dependence, in remission; F12.90 Cannabis use, unspecified, uncomplicated; I10 Essential (primary) hypertension; K21.9 Gastro-esophageal reflux disease without esophagitis; E83.42 Hypomagnesemia; B96.89 Other specified bacterial agents as the cause of diseases classified elsewhere; R00.1 Bradycardia, unspecified; F17.210 Nicotine dependence, cigarettes, uncomplicated; M10.9 Gout, unspecified; Z90.49 Acquired absence of other specified parts of digestive tract; Z98.890 Other specified postprocedural states; Z90.89 Acquired absence of other organs; Z79.899 Other long term (current) drug therapy
CPT/HCPCS: 36415; 70450; 70496; 70498; 70551; 71045; 73030; 80053; 80061; 80164; 80307; 81001; 83036; 83735; 84100; 84484; 85025; 85610; 85730; 87077; 87088; 87186; 92526; 93005; 93010; 93306; 94762; 97162; 97166; 97530; 99285-25; A9270; G0480; J0696; J3475; J7030; J7121; Q9967